=== PATIENT | female | born 1995 | race Caucasian/White ===

== ENCOUNTER 2023-11-12 13:24 | Outpatient (CLI) | payer BC | END 2023-11-12 23:59 | disposition home or self-care (01) | LOC: LAB 13:24 | PROVIDERS: ATTEND Registered Nurse | DX: Z33.2 Encounter for elective termination of pregnancy (principal) | CPT/HCPCS: 36415; 84702 ==

== ENCOUNTER 2023-11-16 13:22 | Outpatient (CLI) | payer BC | END 2023-11-16 23:59 | disposition home or self-care (01) | LOC: RAD 13:22 | PROVIDERS: ATTEND Registered Nurse | DX: Z33.2 Encounter for elective termination of pregnancy (principal) | CPT/HCPCS: 36415; 84702 ==